=== PATIENT | female | born 1995 | race Caucasian/White ===

== ENCOUNTER 2020-11-10 19:44 | Emergency (ER) | payer SELFPAY ==
[~2020-11-10] VITALS: Ht 157.5 cm; Wt 100.0 kg
[2020-11-10 20:16] VITALS: TEMP 97.6
[2020-11-10 22:39] VITALS: BP 110/62; PULSE 66
== END 2020-11-10 22:42 | disposition home or self-care (01) ==
LOC: COL.ER 19:44
DX: S01.01XA Laceration without foreign body of scalp, initial encounter (principal); R11.0 Nausea; W20.8XXA Other cause of strike by thrown, projected or falling object, initial encounter; Y92.009 Unspecified place in unspecified non-institutional (private) residence as the place of occurrence of the external cause; Y99.0 Civilian activity done for income or pay